=== PATIENT | male | born 1935 | race African-American/Black ===

== ENCOUNTER 2018-08-28 10:09 | Emergency (ER) | payer OTHER ==
[~2018-08-28] VITALS: Ht 172.7 cm; Wt 66.0 kg
[2018-08-28] MEDS ORDERED: ACYCLOVIR 400 MG TABLET PO ONE (11:00)
[2018-08-28 11:48] LABS: HEMATOCRIT. 43.3 % (42.0-52.0); MEAN CORPUSCULAR HEMOGLOBIN 32.1 pg (28.0-32.0); MEAN CORPUSCULAR VOLUME 99.3 fL (80.0-94.0); MEAN PLATELET VOLUME 7.4 fl (7.4-10.4); PLATELET 207 x1000/uL (130-400); RED BLOOD CELL COUNT 4.36 mill/uL (4.7-6.1); RED CELL DISTRIBUTION WIDTH 14.5 % (11.6-14.6)
[2018-08-28 11:54] LABS: CHLORIDE 110 mEq/L (98-107)
[2018-08-28 12:26] LABS: PLATELET ESTIMATE NORMAL
[2018-08-28 13:15] VITALS: BP 138/91
== END 2018-08-28 13:55 | disposition home or self-care (01) ==
LOC: ER 10:09
DX: B02.9 Zoster without complications (principal); I10 Essential (primary) hypertension
CPT/HCPCS: 36415; 99283